=== PATIENT | male | born 1935 | race Caucasian/White ===

== ENCOUNTER 2017-05-04 07:50 | Day surgery (SDC) | payer MEDICARE ==
[~2017-05-04 07:50] MED LIST: ALLOPURINOL100 MG PO; AMLODIPINE10 MG PO; METOPROLOL SUCC50 MG PO; PROBENECID/COLC1 TAB PO; SIMVASTATIN20 MG PO
[2017-05-04 10:04] VITALS: BP 111/54
== END 2017-05-04 10:07 | disposition home or self-care (01) ==
LOC: ENDO 07:50 → ORM 10:40 → ENDO 10:40 → ORM 11:10
PROVIDERS: ATTEND Internal Medicine Gastroenterology
PROC: 0D748ZZ Dilation of Esophagogastric Junction, Via Natural or Artificial Opening Endoscopic (ICD-10-PCS; principal; 2017-05-04)
PROC: 0D718ZZ Dilation of Upper Esophagus, Via Natural or Artificial Opening Endoscopic (ICD-10-PCS; 2017-05-04)
PROC: 0DB48ZX Excision of Esophagogastric Junction, Via Natural or Artificial Opening Endoscopic, Diagnostic (ICD-10-PCS; 2017-05-04)
DX: K22.2 Esophageal obstruction (principal); K29.70 Gastritis, unspecified, without bleeding; K44.9 Diaphragmatic hernia without obstruction or gangrene; K21.0 Gastro-esophageal reflux disease with esophagitis; K25.9 Gastric ulcer, unspecified as acute or chronic, without hemorrhage or perforation; K57.90 Diverticulosis of intestine, part unspecified, without perforation or abscess without bleeding; K64.8 Other hemorrhoids; M10.9 Gout, unspecified; I10 Essential (primary) hypertension; Z86.010 Personal history of colon polyps; Z86.73 Personal history of transient ischemic attack (TIA), and cerebral infarction without residual deficits

== ENCOUNTER 2018-08-23 07:03 | Day surgery (SDC) | payer MEDICARE ==
[~2018-08-23] VITALS: Ht 172.7 cm; Wt 74.8 kg
[~2018-08-23 07:03] MED LIST changes: +OMEPRAZOLE20 MG PO
[2018-08-23 10:28] VITALS: BP 126/70
== END 2018-08-23 10:44 | disposition home or self-care (01) ==
LOC: ENDO 07:03 → ORM 10:00 → ENDO 10:00
PROVIDERS: ATTEND Internal Medicine Gastroenterology
PROC: 0D758ZZ Dilation of Esophagus, Via Natural or Artificial Opening Endoscopic (ICD-10-PCS; principal; 2018-08-23)
PROC: 0DB48ZX Excision of Esophagogastric Junction, Via Natural or Artificial Opening Endoscopic, Diagnostic (ICD-10-PCS; 2018-08-23)
PROC: 0DB78ZX Excision of Stomach, Pylorus, Via Natural or Artificial Opening Endoscopic, Diagnostic (ICD-10-PCS; 2018-08-23)
DX: K22.2 Esophageal obstruction (principal); K29.60 Other gastritis without bleeding; K44.9 Diaphragmatic hernia without obstruction or gangrene; K20.9 Esophagitis, unspecified; Q40.8 Other specified congenital malformations of upper alimentary tract; K57.30 Diverticulosis of large intestine without perforation or abscess without bleeding; K64.8 Other hemorrhoids; I10 Essential (primary) hypertension; M10.9 Gout, unspecified; Z86.010 Personal history of colon polyps; Z86.73 Personal history of transient ischemic attack (TIA), and cerebral infarction without residual deficits